=== PATIENT | female | born 1945 | race Asian ===

== ENCOUNTER → 2021-08-15 | Outpatient (CLI) | payer MEDICARE, OTHER | END | disposition home or self-care (01) | LOC: RADMN 08:31 | PROVIDERS: ATTEND Legal Medicine | DX: M43.12 Spondylolisthesis, cervical region (principal); M50.122 Cervical disc disorder at C5-C6 level with radiculopathy; M48.02 Spinal stenosis, cervical region; M47.26 Other spondylosis with radiculopathy, lumbar region; M25.78 Osteophyte, vertebrae; I73.9 Peripheral vascular disease, unspecified | CPT/HCPCS: 72100; 72141; 93925; 93970 ==